=== PATIENT | female | born 1965 | race Caucasian/White ===

== ENCOUNTER 2019-05-21 11:50 | Emergency (ER) | payer SELFPAY ==
[2019-05-21 12:00] VITALS: BP 187/112; PULSE 86; RESP 16; TEMP 36.6; O2SAT 97; BMI 28.1
--- NOTE | 2019-05-21 12:03 | ED_ITS ---
Entered by Renu Hall, acting as scribe for Rianna Floyd PA HPI - Back Pain/Injury General: Chief Complaint: Back Pain/Injury Stated Complaint: Lower left back and side pain Time Seen by Provider: 05/21/19 12:00 Source: patient Mode of arrival: ambulatory Limitations: no limitations History of Present Illness: HPI Narrative: 54 yo Female presents to ED with complaint of lower back pain. Pt states that she was at the grocery store yesterday and was trying to get back into her car but the other car was parked too close. Pt states that she stepped back and had sudden pain in her right lower back. Pt states that the pain kept her up all night and that the pain has moved more around further into her back and into her right hip. Pt states that she has had sciatic pain in the past but this pain isn't radiating down her leg at all. Pt states that she took some Ibuprofen prior to her arrival at the ER. MD elicited complaint: back pain Pertinent past history: prior back pain Onset (ago): day(s) (yesterday) Timing: constant Pain scale (0-10): 10 Quality: sharp Location: right lower back Radiation: other (right hip) Exacerbating factors: movement and walking Relieving factors: none Context: turning/twisting Associated symptoms: Reports no associated symptoms; Deny abdominal pain, chills, dysuria, fatigue, fever(s), nausea, syncope, urinary urgency or vomiting Treatments prior to arrival: NSAIDS Work related injury: No Review of Systems Const: Denies: fever, chills, body aches or fatigue Eyes: Denies: change in vision, blurry vision, photophobia, eye discomfort or eye discharge ENMT: Denies: throat pain, enlarged tonsils, painful swallowing, swelling of lips/tongue, oral sores/lesions, ear pain, ear discharge, nasal discharge, nasal congestion, post nasal drip or facial/sinus pain Card: Denies: chest pain, palpitations, lightheadedness, syncope or pre- syncope Resp: Denies: shortness of breath, productive cough, non-productive cough or chest congestion GI: Denies: abdominal pain, nausea, vomiting or diarrhea : Denies: flank pain, difficulty urinating, painful urination, urinary frequency, urinary urgency or urinary hesitancy Musc: Reports: back pain; Denies: neck pain, extremity pain, extremity swelling, joint pain, joint swelling, redness, joint warmth or joint stiffness Neuro: Denies: headache, numbness in extremities, weakness in extremities or changes in sensation All/Imm: Denies: facial swelling or seasonal allergies PFSH ED PFSH: Social History Smoking and tobacco status: current every day smoker Physical Exam Const: COMMON NORMALS: average body habitus, oriented x3, no limitations, healthy appearing, alert and well nourished GENERAL APPEARANCE: in distress (tearful due to pain) HENMT: THROAT: posterior oropharynx normal, tonsils normal and uvula midline Neck/C-Spine: COMMON NORMALS: full ROM, no lymphadenopathy, supple, no meningeal signs and no JVD GENERAL: Yes normal visual inspection Chest: COMMONS NORMALS: inspection of chest normal Resp: COMMON NORMALS: normal respiratory effort, no retractions, no use of accessory muscles and clear to auscultation bilaterally AUSCULTATION: clear to auscultation bilaterally Cardio: COMMON NORMALS: no JVD, regular rate, regular rhythm, S1 normal heart sound, S2 normal heart sound, no gallops, no clicks, no murmurs, no rub and peripheral pulses 2+ throughout RATE: regular rate RHYTHM: regular rhythm HEART SOUNDS: S1 normal and S2 normal PERIPHERAL PULSES: pulses 2+ throughout GI: COMMON NORMALS: normal to inspection, nondistended, normoactive bowel sounds, soft to palpation, non-tender, no hepatosplenomegaly and no masses PALPATION: Yes soft and Yes no hepatosplenomegaly : COMMON NORMALS: Yes no CVA tenderness BLADDER/KIDNEY EXAM: Yes no CVA tenderness Back/Pelvis: COMMON NORMALS: no CVA tenderness, thoracic and lumbar spine normal to inspection and no thoracic nor lumbar tenderness LUMBAR SPINE/LOWER BACK: Yes paraspinal muscle tenderness (R lumbar), Yes paraspinal muscle spasm (R lumbar) and Yes straight leg raise positive right PELVIS: Yes buttocks normal SACROILIAC JOINTS: Yes SI joint(s) abnormal (TTP over R SI) Extremity: COMMON NORMALS: normal to inspection, full ROM, normal capillary refill, no joint enlargement, no clubbing, cyanosis or edema, no calf tenderness and no pedal edema Neuro: COMMON NORMALS: oriented x3, moves all extremities, no focal motor deficits, no sensory deficits noted and deep tendon reflexes 2+ bilaterally SENSORIUM/ORIENTATION: Yes alert MENINGEAL SIGNS: Yes no meningeal signs Skin: COMMON NORMALS: no rashes or lesions noted GENERAL SKIN EXAM: no rashes or lesions noted Course Vital Signs: Vital signs: Vital Signs Temperature 97.8 F 05/21/19 12:00 Pulse Rate 86 05/21/19 12:00 Respiratory Rate 18 05/21/19 12:45 Blood Pressure 187/112 05/21/19 12:00 Pulse Oximetry 97 05/21/19 12:45 MDM - Back Pain/Injury MDM Narrative: Medical decision making narrative: pts pain down from a 10/10 to a 5/10; she feels comfortable going home but requests a walker/cane as she has several steps to ambulate up to get into her home; recommend she follow up with PCP in a week for continued pain Discharge Plan Discharge Patient Disposition: Home, Self-Care Clinical Impression: Low back sprain Qualifiers: Encounter type: initial encounter Qualified Code(s): S33.5XXA - Sprain of ligaments of lumbar spine, initial encounter Condition: Stable Prescriptions: New Medrol (Mark) 4 mg tablets,dose pack See Rx Instructions .ROUTE .COMPLEX Qty: 21 RF: 0 cyclobenzaprine 10 mg tablet 10 mg PO TID Qty: 21 RF: 0 hydrocodone-acetaminophen 5-325 mg tablet 1 tab PO Q6H PRN (Reason: pain) Qty: 15 RF: 0 ibuprofen 600 mg tablet 600 mg PO Q8H PRN (Reason: pain) Qty: 20 RF: 0 No Action Tylenol 325 mg Tablet 325 mg PO QID PRN (Reason: Pain) RF: 0 ranitidine HCl 75 mg Tablet 75 mg PO DAILY RF: 0 ibuprofen 200 mg Tablet 200 mg PO Q6H PRN (Reason: Pain) RF: 0 Discharge Orders: Discharge Order (Routine); Ordered 05/21/19 Ordered By: Rianna Floyd Referrals: Juan Carlos Virgen DO [Family Provider] - Discharge Diet: Usual diet Discharge Activity: Use walker/crutches as instructed Patient Instructions: Sciatica (ED), Low Back Strain (ED) Activity Restrictions/Additional Instructions: Please follow up with primary care in a week for continued pain. Coding Level of Care Code ED Integrated Specialist for [facility] Fwd Exam Comprehensive The documentation recorded by the scribe, Heartwell,Renu, accurately reflects the service I personally performed and the decisions made by me, Rianna Floyd PA
[2019-05-21 12:45] VITALS: RESP 18; O2SAT 97
[2019-05-21] MEDS: morphine 4 mg/mL SDV 1 mL IM (12:45)
[2019-05-21] MEDS: ketorolac 60 mg/2 mL INJ IM (12:46)
[2019-05-21] MEDS: orphenadrine 30 mg/mL Inj 2 mL 60 MG IM (12:46)
== END 2019-05-21 15:50 | disposition home or self-care (01) ==
PROVIDERS: Emergency Provider Physician Assistant; Family Provider Family Medicine
DX: S33.5XXA Sprain of ligaments of lumbar spine, initial encounter (principal); F17.200 Nicotine dependence, unspecified, uncomplicated; X58.XXXA Exposure to other specified factors, initial encounter
CPT/HCPCS: 12345; 96372; 99281; 99283; J1885; J2270; J2360

== ENCOUNTER 2019-06-18 12:44 | Emergency (ER) | payer SELFPAY ==
[2019-06-18 12:55] VITALS: BP 169/114; PULSE 102; RESP 16; TEMP 37; O2SAT 96; BMI 29.0
--- NOTE | 2019-06-18 13:05 | W.ED.EXTPRO ---
HPI - Extremity Problem General: Chief complaint: Extremity Injury, Upper Stated complaint: wrist pain Time Seen by Provider: 06/18/19 13:05 Source: patient Mode of arrival: ambulatory Limitations: no limitations History of Present Illness: HPI Narrative: 54-year-old female comes in for injury to the left hand and forearm. Patient reports she was helping move a heavy appliance with the patient and tripped going up stairs. Patient reached back to catch herself and hit her hand and wrist area against the wall. Since that time patient has had increased pain and discomfort to the area with minimal relief. Patient appears well. Patient appears in moderate pain. Review of Systems General: Reports: 10 or more systems reviewed and unremarkable except in HPI and below Musc: Reports: joint pain PFSH ED PFSH: Social History Smoking and tobacco status: current every day smoker Physical Exam Const: COMMON NORMALS: no apparent distress and oriented x3 GENERAL APPEARANCE: cooperative HENMT: COMMON NORMALS: normocephalic, TM's normal bilaterally and external nose normal HEAD & SCALP: normal to inspection and normocephalic NOSE: external nose normal TYMPANIC MEMBRANE: TM's normal bilaterally MOUTH: oral and palatal mucosa normal THROAT: posterior oropharynx normal Eye: GENERAL EYE: normal appearance of both eyes Neck/C-Spine: COMMON NORMALS: full ROM Lymph: LYMPHATIC: no lymphadenopathy noted Chest: COMMONS NORMALS: inspection of chest normal Resp: COMMON NORMALS: normal respiratory effort EFFORT & INSPECTION: Yes able to speak in complete sentences Cardio: COMMON NORMALS: regular rate and regular rhythm RATE: regular rate RHYTHM: regular rhythm GI: COMMON NORMALS: non-tender : COMMON NORMALS: Yes no CVA tenderness BLADDER/KIDNEY EXAM: Yes no CVA tenderness Back/Pelvis: COMMON NORMALS: no CVA tenderness and thoracic and lumbar spine normal to inspection Extremity: NARRATIVE EXTREMITY EXAM: Tenderness to the radial distal area and the left thumb. Some mild ecchymosis and swelling is noted to the left thumb. Neuro: COMMON NORMALS: oriented x3 and moves all extremities Psych: COMMON NORMALS: mental status grossly normal and cooperative Skin: COMMON NORMALS: no rashes or lesions noted GENERAL SKIN EXAM: no rashes or lesions noted Course Vital Signs: Vital signs: Vital Signs Temperature 98.6 F 06/18/19 12:55 Pulse Rate 102 H 06/18/19 12:55 Respiratory Rate 16 06/18/19 12:55 Blood Pressure 169/114 06/18/19 12:55 Pulse Oximetry 96 06/18/19 12:55 MDM - Extremity (Nontraumatic) MDM Narrative: Medical decision making narrative: Patient comes in for evaluation of injury to the left hand wrist area. Exam notes some swelling and tenderness to the radial aspect of the thumb and wrist area. It is guarded with movement. Differential diagnosis includes but not limited to fracture, sprain, strain, contusion. X-rays noted no fracture. Reviewed exam with patient with recommendations for treatment and follow-up. Patient reports understanding agreed to plan. Discharge Plan Discharge Patient Disposition: Home, Self-Care Clinical Impression: Sprain and strain of wrist Condition: Stable Prescriptions: No Action Tylenol 325 mg Tablet 325 mg PO QID PRN (Reason: Pain) RF: 0 ranitidine HCl 75 mg Tablet 75 mg PO DAILY RF: 0 ibuprofen 200 mg Tablet 200 mg PO Q6H PRN (Reason: Pain) RF: 0 Medrol (Mark) 4 mg tablets,dose pack See Rx Instructions .ROUTE .COMPLEX Qty: 21 RF: 0 cyclobenzaprine 10 mg tablet 10 mg PO TID Qty: 21 RF: 0 hydrocodone-acetaminophen 5-325 mg tablet 1 tab PO Q6H PRN (Reason: pain) Qty: 15 RF: 0 ibuprofen 600 mg tablet 600 mg PO Q8H PRN (Reason: pain) Qty: 20 RF: 0 Discharge Orders: Discharge Order (Routine); Ordered 06/18/19 Ordered By: Vinod Acosta Referrals: Juan Carlos Virgen DO [Family Provider] - Discharge Diet: Usual diet Discharge Activity: Increase activity as tolerated Patient Instructions: Wrist Injury (ED) Activity Restrictions/Additional Instructions: Wear splint for the next 7 to 10 days or until pain relief. Use acetaminophen and ibuprofen for pain relief. Use ice or heat for further comfort. Increase activity as tolerated. Follow-up with primary care for further evaluation and treatment as needed. Coding Level of Care Code ED Care Transitions Nurse for Alfredo Fwomer Exam Comprehensive
--- NOTE | 2019-06-18 13:14 | XR_ITS ---
WS: [id number] FOREARM LEFT TECHNIQUE: 2 views of the left forearm CLINICAL INFORMATION: injury COMPARISON: None. FINDINGS: No significant elbow effusion. Normal anterior fat pad. No evidence of supra condylar fracture. No ev idence of radial head dislocation. The radius and ulna appear normal. No visualized forearm fractures . Normal radiocarpal joint. XR/XR forearm LT 2V [id number] IMPRESSION: Normal left forearm.
--- NOTE | 2019-06-18 13:14 | XR_ITS ---
WS: [id number] HAND LEFT TECHNIQUE: 3 views of the left hand CLINICAL INFORMATION: injury COMPARISON: None. FINDINGS: Normal metacarpals. Normal MCP joint. Metacarpal heads are normal in appearance. Normal PIP and DIP j oints. No evidence of acute fracture or dislocation. Radiocarpal joint: Normal. Carpal bones: Normal. XR/XR hand LT min 3V* [id number] IMPRESSION: Normal left hand.
[2019-06-18 14:08] VITALS: BP 170/124; PULSE 95; O2SAT 94
== END 2019-06-18 14:08 | disposition home or self-care (01) ==
LOC: ER 14:05
PROVIDERS: Emergency Provider Nurse Practitioner Family; Family Provider Family Medicine
DX: S63.502A Unspecified sprain of left wrist, initial encounter (principal); S66.912A Strain of unspecified muscle, fascia and tendon at wrist and hand level, left hand, initial encounter; W18.49XA Other slipping, tripping and stumbling without falling, initial encounter; F17.210 Nicotine dependence, cigarettes, uncomplicated
CPT/HCPCS: 12345; 29125; 73090; 73130; 99281; 99283

== ENCOUNTER 2019-10-27 22:56 | Emergency (ER) | payer SELFPAY ==
[2019-10-27 23:25] VITALS: BP 163/90; PULSE 95; RESP 17; TEMP 36.9; O2SAT 96; BMI 29.7
--- NOTE | 2019-10-28 00:02 | ED_ITS ---
HPI - General Adult General: Chief complaint: General Medical Stated complaint: r side pain and swelling Time Seen by Provider: 10/28/19 00:01 Source: patient Mode of arrival: ambulatory Limitations: no limitations History of Present Illness: HPI narrative: 54-year-old female comes in today with right upper quadrant abdominal pain. Patient does continue to have her gallbladder. Patient also has a significant intertrigo rash to the breast and axilla area. Patient denies any fever. Patient states that medication she is used for her pain has not helped. Review of Systems General: Reports: 10 or more systems reviewed and unremarkable except in HPI and below GI: Reports: abdominal pain PFSH ED PFSH: Social History Smoking and tobacco status: current every day smoker Physical Exam Const: COMMON NORMALS: no acute distress and patient oriented x3 GENERAL APPEARANCE: cooperative HENMT: COMMON NORMALS: normocephalic and Normal external nose present HEAD & SCALP: normal to inspection and normocephalic NOSE: Normal external nose present MOUTH: Normal oral and palatal mucosa present THROAT: posterior oropharynx normal Eye: GENERAL EYE: appearance normal, both eyes and all related structures Neck/C-Spine: COMMON NORMALS: full ROM Chest: COMMONS NORMALS: normal inspection of the chest Resp: COMMON NORMALS: normal respiratory effort EFFORT & INSPECTION: Yes able to speak in complete sentences Cardio: COMMON NORMALS: regular rate and regular rhythm RATE: regular rate RHYTHM: regular rhythm GI: AUSCULTATION: Yes normoactive bowel sounds PALPATION: Yes Firmness to palpation present (GI) (mild distention) and Yes Tenderness to palpation present (GI) : COMMON NORMALS: Yes no CVA tenderness BLADDER/KIDNEY EXAM: Yes no CVA tenderness Back/Pelvis: COMMON NORMALS: no CVA tenderness and thoracic and lumbar spine normal to inspection Extremity: COMMON NORMALS: normal to inspection Neuro: COMMON NORMALS: patient oriented x3 and moves all extremities Psych: COMMON NORMALS: mental status grossly normal and cooperative Skin: COMMON NORMALS: no rashes or lesions noted GENERAL SKIN EXAM: no rashes or lesions noted Course Vital Signs: Vital signs: Vital Signs Temperature 98.4 F 10/27/19 23:25 Pulse Rate 74 10/28/19 02:00 Respiratory Rate 16 10/28/19 02:00 Blood Pressure 134/85 10/28/19 02:00 Pulse Oximetry 94 10/28/19 02:00 MDM - General Adult MDM Narrative: Medical decision making narrative: Patient comes in with right flank pain. On exam patient has tenderness palpation of the right abdomen and flank area. Respirations are even lungs are clear to auscultation. Abdomen soft with some mild distention. Vital signs are normal. Differential diagnosis includes but not limited to musculoskeletal pain, renal calculi, cholecystitis. Laboratory values noted a mild elevation in white blood cell count of 10.6. CMP noted some elevation in liver enzymes. Bilirubin was normal though and lipase was normal ultrasound of the gallbladder noted no cholelithiasis or cholecystitis. Scan of the abdomen and pelvis noted no renal calculi or other acute abnormal process. Patient did have some significant intertrigo to her breast and axilla area. Patient's pain otherwise is probably secondary to musculoskeletal problem. Reviewed exam with patient with recommendations for treatment of pain and for yeast infection. Patient reports understanding agreed to plan. Lab Data: Labs: Lab Results 10/28/19 10/28/19 10/28/19 Range/Units 00:25 00:36 00:36 WBC 10.6 H (4.0-10.0) 10^3/ uL RBC 4.61 (4.1-5.3) 10^6/u L Hgb 14.5 (11.5-15.3) g/dL Hct 43.6 (37.0-47.0) % MCV 94.6 (81-99) fL MCH 31.5 (28.0-34.0) pg MCHC 33.3 (30.0-36.0) g/dL RDW 13.6 (12.1-15.1) % Plt Count 223 (130-400) 10^3/c mm MPV 11.2 H (7.4-10.4) fL Neut % (Auto) 63.4 % Lymph % (Auto) 26.5 % Person % (Auto) 6.3 % Eos % (Auto) 3.0 % Baso % (Auto) 0.6 % Neut # (Auto) 6.71 (1.8-7.7) 10^3/u L Lymph # (Auto) 2.8 (0.8-4.8) 10^3/u L Person # (Auto) 0.7 (0.2-0.9) 10^3/u L Eos # (Auto) 0.3 (0.0-0.8) 10^3/u L Baso # (Auto) 0.1 (0.0-0.1) 10^3/u L Nucleated RBC % (a uto) 0 % Nucleated RBCs # 0.0 /100WBC Sodium 141 (136-145) mmol/L Potassium 3.6 (3.5-5.1) mmol/L Chloride 101 (98-107) mmol/L Carbon Dioxide 27 (22-29) mmol/L Anion Gap 16.6 (5-19) BUN 17 (6-20) mg/dL Creatinine 0.7 (0.5-0.9) mg/dL GFR Calculation 87.2 L (90-130) mL/min Glucose 99 (65-115) mg/dL Calculated Osmolal ity 288 (285-295) mOsm/k g Calcium 9.0 (8.5-10.5) mg/dL Total Bilirubin 0.4 (0.15-1.2) mg/dL AST 52 H (0-32) U/L ALT 68 H (0-33) U/L Alkaline Phosphata se 78 (35-105) IU/L Total Protein 8.1 (6.6-8.7) g/dL Albumin 4.6 (3.5-5.2) g/dL Globulin 3.5 (1.3-4.6) g/dL Lipase 18 (13-60) U/L Urine Color Yellow (Yellow) Urine Appearance Clear (CLEAR) Urine pH 6.5 (5-7) Ur Specific Gravit y 1.010 (1.005-1.030) Urine Protein Neg (Negative) Urine Glucose (UA) Norm (Normal) Urine Ketones Negative (Negative) Urine Blood Trace H (Negative) Urine Nitrate Negative (Negative) Urine Bilirubin Neg (NEGATIVE) Urine Urobilinogen Norm (Negative) mg/dL Ur Leukocyte Leni ase Negative (Negative) Urine RBC 0-4 H (0-2) /hpf Urine WBC 0-4 H (0-5) /hpf Ur Squamous Epith Cells 5-10 H (0-5) Amorphous Sediment Not Reportable Urine Bacteria Trace (NONE) Discharge Plan Discharge Patient Disposition: Home Clinical Impression: Abdominal wall pain in right flank, Candidiasis, intertrigo Condition: Stable Prescriptions: New nystatin 100,000 unit/gram powder 1 applic TOPICAL BID Qty: 60 RF: 0 Diflucan 150 mg tablet 150 mg PO Q3D Qty: 2 RF: 0 Continued hydrocodone-acetaminophen 5-325 mg tablet 1 tab PO Q6H PRN (Reason: pain) Qty: 10 RF: 0 No Action Tylenol 325 mg Tablet 325 mg PO QID PRN (Reason: Pain) RF: 0 ranitidine HCl 75 mg Tablet 75 mg PO DAILY RF: 0 ibuprofen 200 mg Tablet 200 mg PO Q6H PRN (Reason: Pain) RF: 0 Medrol (Mark) 4 mg tablets,dose pack See Rx Instructions .ROUTE .COMPLEX Qty: 21 RF: 0 cyclobenzaprine 10 mg tablet 10 mg PO TID Qty: 21 RF: 0 ibuprofen 600 mg tablet 600 mg PO Q8H PRN (Reason: pain) Qty: 20 RF: 0 ketorolac 10 mg tablet 10 mg PO Q6H PRN (Reason: pain (scale score 7-10)) Qty: 10 RF: 0 Discharge Orders: Discharge Order (Routine); Ordered 10/28/19 Ordered By: Vinod Acosta Discharge Diet: Usual diet Discharge Activity: Increase activity as tolerated Patient Instructions: Back Pain (ED) Activity Restrictions/Additional Instructions: Take medications as directed. Healthy diet and activity. Follow-up with primary care. Return to the emergency department for new concerns. Coding Level of Care Code ED Postdoctoral Research Fellow for Alfredo Strickland Exam Comprehensive
--- NOTE | 2019-10-28 00:08 | USR_ITS ---
PROCEDURE INFORMATION: Exam: US Abdomen, Limited; Right Upper Quadrant Exam date and time: 10/28/2019 1:26 AM Age: 54 years old Clinical indication: Abdominal pain; Flank; Right upper quadrant (ruq); Additional info: Ruq pain TECHNIQUE: Imaging protocol: US abdomen. Real time ultrasound with image documentation. Limited exam focused on the right upper quadrant. COMPARISON: CT abdomen pelvis w con* [id number] 12/14/2014 6:39 AM FINDINGS: Liver: There is diffuse increased echogenicity of the liver parenchyma and attenuation of sound in the deep portions of the liver obscuring fine hepatic detail, consistent with fatty infiltration. Gallbladder: The gallbladder is normal. There are no stones. There is no wall thickening or pericholecystic fluid. Common bile duct: The common bile duct is nondilated measuring 3 mm. Pancreas: The pancreas is obscured by overlying bowel gas. Right kidney: The right kidney is unremarkable. US/US gall bladder [id number] IMPRESSION: 1. No sign of cholecystitis. 2. Diffuse fatty infiltration of the liver.
[2019-10-28 00:09] VITALS: BP 163/95; PULSE 91; RESP 18; O2SAT 95
--- NOTE | 2019-10-28 00:16 | CTR_ITS ---
PROCEDURE INFORMATION: Exam: CT Abdomen And Pelvis With Contrast Exam date and time: 10/28/2019 1:02 AM Age: 54 years old Clinical indication: Abdominal pain; Localized; Right upper quadrant (ruq); Additional info: Abd pain, distention TECHNIQUE: Imaging protocol: Computed tomography of the abdomen and pelvis with intravenous contrast. Radiation optimization: All CT scans at this facility use at least one of these dose optimization techniques: automated exposure control; mA and/or kV adjustment per patient size (includes targeted exams where dose is matched to clinical indication); or iterative reconstruction. Contrast material: OMNI 300; Contrast volume: 95 ml; Contrast route: INTRAVENOUS (IV); COMPARISON: CT abdomen pelvis w con* [id number] 12/14/2014 6:39 AM RADIATION DOSE METRICS: Total DLP (mGy-cm): 922.69 FINDINGS: Lungs: Lung bases are clear. Liver: There is diffuse low-attenuation of the liver relative to the spleen consistent with fatty infiltration. There is no focal liver abnormality. Gallbladder and bile ducts: The gallbladder is normal. There is no biliary dilation. Pancreas: The pancreas is unremarkable. Spleen: The spleen is unremarkable. Adrenals: The adrenal glands are unremarkable. Kidneys and ureters: The kidneys are unremarkable. No hydronephrosis or stones. No ureteral dilation. Stomach and bowel: There is intermittent small-bowel distention in the left upper quadrant. Obstruction is not suspected. The mid to distal small bowel is unremarkable. There is moderate distal descending and sigmoid colonic diverticulosis without evidence of diverticulitis. The stomach is unremarkable. Appendix: The appendix is normal. Intraperitoneal space: There is no free air or significant intraperitoneal free fluid. Vasculature: The aorta is unremarkable. There is no aneurysm. Lymph nodes: There is no lymphadenopathy in the retroperitoneum, mesentery, pelvis or inguinal regions. Bladder: The urinary bladder is unremarkable. Reproductive: The uterus is unremarkable. There is no adnexal mass or large cyst. Bones/joints: There is mild degenerative disease in the lumbar spine. Soft tissues: The abdominal wall is intact. CT/CT abdomen pelvis w con* [id number] IMPRESSION: 1. No acute findings. 2. Incidental findings above. Radiation Dose CTDIVOL = (mGy): DLP = 922.69 (mGy-cm)
[2019-10-28 00:36] LABS: Add Urine Microscopic? YES; Bilirubin Urine Neg (NEGATIVE); Blood Urine Trace (Negative); Glucose Urine UA Norm (Normal); Ketones Urine Negative (Negative); Leukocyte Esterase Urine Negative (Negative); Nitrate Urine Negative (Negative); Protein Urine Neg (Negative); Urine Appearance Clear (CLEAR); Urine Color Yellow (Yellow); Urobilinogen Urine Norm (Negative); pH Urine 6.5 (5-7)
[2019-10-28 00:38] LABS: Add Urine Culture? No; Bacteria Urine TRACE; RBC Urine 0-4 /hpf (0-2); WBC Urine 0-4 /hpf (0-5)
[2019-10-28 00:43] VITALS: RESP 18; O2SAT 95
[2019-10-28 00:43] LABS: Basophils # 0.1 10^3/uL (0.0-0.1); Basophils % 0.6 %; Eosinophils # 0.3 10^3/uL (0.0-0.8); Hematocrit 43.6 % (37.0-47.0); Hemoglobin 14.5 g/dL (11.5-15.3); Lymphocytes # 2.8 10^3/uL (0.8-4.8); Lymphocytes % 26.5 %; Mean Corpuscular HGB Conc 33.3 g/dL (30.0-36.0); Mean Corpuscular Hemoglobin 31.5 pg (28.0-34.0); Mean Corpuscular Volume 94.6 fL (81-99); Mean Platelet Volume 11.2 fL (7.4-10.4); Monocytes # 0.7 10^3/uL (0.2-0.9); Monocytes % 6.3 %; Neutrophils # 6.71 10^3/uL (1.8-7.7); Neutrophils % 63.4 %; Nucleated Red Blood Cells % 0 %; Platelet Count 223 10^3/cmm (130-400); Red Blood Count 4.61 10^6/uL (4.1-5.3); Red Cell Distribution Width 13.6 % (12.1-15.1); White Blood Count 10.6 10^3/uL (4.0-10.0)
[2019-10-28] MEDS: ondansetron 2 mg/ML SDV 2 mL 4 MG IVP (00:43)
[2019-10-28] MEDS: morphine 4 mg/mL SDV 1 mL IVP (00:43)
[2019-10-28] MEDS: sodium chloride 0.9% 500 ML 999 ML IV (00:43)
[2019-10-28 01:00] VITALS: BP 140/91; RESP 18; O2SAT 94
[2019-10-28 01:04] LABS: Alanine Aminotransferase 68 U/L (0-33); Albumin Level 4.6 g/dL (3.5-5.2); Alkaline Phosphatase 78 IU/L (35-105); Anion Gap 16.6 (5-19); Aspartate Amino Transferase 52 U/L (0-32); Blood Urea Nitrogen 17 mg/dL (6-20); Carbon Dioxide 27 mmol/L (22-29); Chloride 101 mmol/L (98-107); Creatinine Clr Calc Pharmacy 103.6065; Globulin 3.5 g/dL (1.3-4.6); Glomerular Filtration Rate 87.2 mL/min (90-130); Glucose 99 mg/dL (65-115); Lipase 18 U/L (13-60); Osmolality Calculated 288 mOsm/kg (285-295); Potassium 3.6 mmol/L (3.5-5.1); Sodium 141 mmol/L (136-145); Total Bilirubin 0.4 mg/dL (0.15-1.2); Total Protein 8.1 g/dL (6.6-8.7)
[2019-10-28] MEDS: iohexol 300 mg/mL 100 mL Btl IV (01:37)
[2019-10-28 02:00] VITALS: BP 134/85; PULSE 74; RESP 16; O2SAT 94
[2019-10-28] MEDS: HYDROcodone-acetaminophen 5-325 mg Tablet 1 TAB PO (03:08)
[2019-10-28] MEDS: fluconazole 100 mg Tablet 150 MG PO (03:08)
[2019-10-28 03:10] VITALS: BP 134/68; PULSE 78; RESP 16; O2SAT 96
== END 2019-10-28 03:23 | disposition home or self-care (01) ==
PROVIDERS: Emergency Provider Nurse Practitioner Family
DX: R10.9 Unspecified abdominal pain (principal); B37.9 Candidiasis, unspecified; L30.4 Erythema intertrigo; F17.210 Nicotine dependence, cigarettes, uncomplicated
CPT/HCPCS: 12345; 74177; 76705; 80053; 81001; 83690; 85025; 96374; 96375; 99283; J2270; J2405; J7040; Q9967

== ENCOUNTER 2020-04-06 10:38 | Emergency (ER) | payer SELFPAY ==
[2020-04-06 10:43] VITALS: BP 187/93; PULSE 112; RESP 18; TEMP 36.2; O2SAT 97; BMI 29.0
[2020-04-06 10:46] VITALS: BP 187/93; PULSE 106; RESP 18; O2SAT 98
--- NOTE | 2020-04-06 11:05 | W.ED.EPISTAX ---
HPI - Epistaxis General: Chief complaint: Epistaxis Stated complaint: Bloody nose Time Seen by Provider: 04/06/20 11:04 Source: patient Mode of arrival: ambulatory Limitations: no limitations History of Present Illness: HPI Narrative: Patient comes in with left nostril nosebleed. Patient also reports cough and congestion in the chest. Patient reports being ill for about 1 week. Patient appears mildly unwell. Patient appears no acute distress. Patient does routinely smoke. Review of Systems General: Reports: 10 or more systems reviewed and unremarkable except in HPI and below ENMT: Reports: epistaxis Resp: Reports: non-productive cough and chest congestion PFS ED PFSH: Social History Smoking and tobacco status: current every day smoker Physical Exam Const: COMMON NORMALS: no acute distress and patient oriented x3 GENERAL APPEARANCE: cooperative HENMT: COMMON NORMALS: normocephalic, TM's normal bilaterally and Normal external nose present HEAD & SCALP: normal to inspection and normocephalic NOSE: Normal external nose present and Other nasal findings present (Blood noted in the left naris.) TYMPANIC MEMBRANE: TM's normal bilaterally MOUTH: Normal oral and palatal mucosa present THROAT: posterior oropharynx normal and other (Trace of blood in the posterior pharynx) Eye: GENERAL EYE: appearance normal, both eyes and all related structures Neck/C-Spine: COMMON NORMALS: full ROM Lymph: LYMPHATIC: no lymphadenopathy noted Chest: COMMONS NORMALS: normal inspection of the chest Resp: COMMON NORMALS: normal respiratory effort EFFORT & INSPECTION: Yes able to speak in complete sentences AUSCULTATION: diminished lung sounds Cardio: COMMON NORMALS: regular rate and regular rhythm RATE: regular rate RHYTHM: regular rhythm GI: COMMON NORMALS: non-tender Back/Pelvis: COMMON NORMALS: thoracic and lumbar spine normal to inspection Extremity: COMMON NORMALS: normal to inspection Neuro: COMMON NORMALS: patient oriented x3 and moves all extremities Psych: COMMON NORMALS: mental status grossly normal and cooperative Skin: COMMON NORMALS: no rashes or lesions noted GENERAL SKIN EXAM: no rashes or lesions noted Course Vital Signs: Vital signs: Vital Signs Temperature 97.1 F L 04/06/20 10:43 Pulse Rate 101 H 04/06/20 11:37 Respiratory Rate 20 H 04/06/20 11:32 Blood Pressure 187/93 04/06/20 10:46 Pulse Oximetry 99 04/06/20 11:32 MDM - Epistaxis MDM Narrative: Medical decision making narrative: Patient comes in today for cough and congestion and nosebleed. On exam patient has no bleeding at this time. Patient does have some blood in the left naris and mild streaking in the posterior pharynx. Respirations are even lungs are clear to auscultation vital signs are normal except for some mild elevation of blood pressure. Patient reports illness for 1 week. Differential diagnosis includes epistaxis, bronchitis, pneumonia. Chest x-ray was normal. Bleeding was brought under control with Afrin. Patient instructions were given for antibiotic and the use of albuterol inhaler and Afrin nasal spray. Patient reports understanding of care plan and need for follow-up or return to the emergency room. Discharge Plan Discharge Patient Disposition: Home Clinical Impression: Epistaxis Acute bronchitis Qualifiers: Bronchitis organism: unspecified organism Qualified Code(s): J20.9 - Acute bronchitis, unspecified Condition: Stable Prescriptions: New cephalexin 500 mg capsule 500 mg PO TID 7 Days Qty: 21 RF: 0 ketoconazole 1 % shampoo 1 applic topical Q3D Qty: 200 RF: 0 No Action Tylenol 325 mg Tablet 325 mg PO QID PRN (Reason: Pain) RF: 0 ranitidine HCl 75 mg Tablet 75 mg PO DAILY RF: 0 ibuprofen 200 mg Tablet 200 mg PO Q6H PRN (Reason: Pain) RF: 0 Medrol (Mark) 4 mg tablets,dose pack See Rx Instructions .ROUTE .COMPLEX Qty: 21 RF: 0 cyclobenzaprine 10 mg tablet 10 mg PO TID Qty: 21 RF: 0 ibuprofen 600 mg tablet 600 mg PO Q8H PRN (Reason: pain) Qty: 20 RF: 0 nystatin 100,000 unit/gram powder 1 applic TOPICAL BID Qty: 60 RF: 0 Diflucan 150 mg tablet 150 mg PO Q3D Qty: 2 RF: 0 hydrocodone-acetaminophen 5-325 mg tablet 1 tab PO Q6H PRN (Reason: pain) Qty: 10 RF: 0 ketorolac 10 mg tablet 10 mg PO Q6H PRN (Reason: pain (scale score 7-10)) Qty: 10 RF: 0 Discharge Orders: Discharge ED (Routine); Ordered 04/06/20 Ordered By: Vinod Acosta Discharge Diet: Usual diet Discharge Activity: Increase activity as tolerated Patient Instructions: Epistaxis (ED) Activity Restrictions/Additional Instructions: Drink plenty of fluids of antibiotic. Use Afrin nasal spray 2 spray each nostril 3 times a day for the next 3 days. Use albuterol inhaler 2 puffs every 4 times a day for the next 5 days. You can use the inhaler every 4 hours as needed for shortness of breath. Take antibiotics 3 times a day as directed. Follow-up with primary care as needed. Return to the emergency department for new concerns. Stand Alone Forms: Work/School Release Coding Level of Care Code ED [employer] Secretary for Alfredo Fwd Exam Comprehensive
--- NOTE | 2020-04-06 11:10 | XRR_ITS ---
PROCEDURE INFORMATION: Exam: XR Chest, 1 View Exam date and time: 04/06/2020 11:20 AM Age: 54 years old Clinical indication: Cough; Additional info: Cough, congestion TECHNIQUE: Imaging protocol: XR of the chest Views: 1 view. COMPARISON: CR Chest 2 views* [id number] 02/03/2015 10:17 AM FINDINGS: Lungs: Unremarkable. No consolidation. Pleural spaces: Unremarkable. No pleural effusion. No pneumothorax. Heart/Mediastinum: Unremarkable. No cardiomegaly. Bones/joints: Unremarkable. XR/XR chest 1V portable [id number] IMPRESSION: No acute findings.
[2020-04-06] MEDS: oxymetazoline 0.05% Nasal Spray 15 mL 2 SPRAY NOSTRIL-B (11:16)
[2020-04-06] MEDS: albuterol 8 gm MDI 2 PUFF INHALATION (11:29)
[2020-04-06 11:32] VITALS: PULSE 97; RESP 20; O2SAT 99
[2020-04-06 11:37] VITALS: PULSE 101
[2020-04-06] MEDS: dexamethasone 4 mg Tablet 10 MG PO (11:44)
[2020-04-06] MEDS: cephALEXin 500 mg Capsule PO (11:44)
[2020-04-06 11:48] VITALS: BP 134/74; PULSE 87; RESP 18; O2SAT 98
== END 2020-04-06 11:49 | disposition home or self-care (01) ==
PROVIDERS: Emergency Provider Nurse Practitioner Family
DX: R04.0 Epistaxis (principal); J20.9 Acute bronchitis, unspecified; F17.210 Nicotine dependence, cigarettes, uncomplicated
CPT/HCPCS: 12345; 71045; 94640; 99282; 99283; J3535; J8540

== ENCOUNTER 2020-08-24 15:16 | Emergency (ER) | payer SELFPAY ==
[2020-08-24 16:04] VITALS: BP 196/97; PULSE 94; RESP 16; TEMP 37; O2SAT 97; BMI 29.8
--- NOTE | 2020-08-24 16:27 | W.ED.SKABFB ---
HPI - Skin/Abscess/Foreign Bdy General: Chief complaint: Skin/Abscess/Foreign Body Stated complaint: RASH CAUSING BLISTERS AND CRACKING Time Seen by Provider: 08/24/20 15:48 History of Present Illness: HPI narrative: Patient has a rash that started on her lower extremities starting as small red dots that have slowly spread out and have started severe itching. They have become very large and now spreading to her arms. Patient said she has tried dake-hyz-ftgxgag products such as O'Addie's working hand solution, alcohol rubs, iodine soaks and rubs. Actually the wound become worse with the iodine. Patient also complained about the skin on her hands and feet starting to crack and becoming painful. This seem to start about the same time as a rash. Says she has her hands and feet in hot water a lot as she tries to keep them clean. Patient also has multiple cats in her house and outside that she has contact with. Patient complains about severe itching. MD complaint: rash Onset (ago): week(s) Tetanus up to date: yes Location: LUE, RUE, L hand, R hand, LLE, RLE, L foot and R foot Severity: severe Quality: burning and pruritic Relieving factors: none Context: other (Has tried multiple ibfl-twn-swanjkf products that have worsened the rash) Associated symptoms: Deny chills, fever(s), nausea or vomiting Review of Systems Const: Denies: fever(s), chills or body aches Eyes: Denies: change in vision or blurry vision ENMT: Denies: throat pain or nasal congestion Card: Denies: chest pain or dyspnea on exertion Resp: Denies: dyspnea, productive cough or non-productive cough GI: Denies: abdominal pain, nausea or vomiting Musc: Denies: extremity pain Skin/Breast: Reports: pruritus, erythema, skin tenderness, sores, new lesions, non-healing lesions and dry skin; Denies: rash Neuro: Denies: headache(s) Psych: Denies: anxiety or depression Maury/Lymph: Denies: easy bruising PFSH ED PFSH: Social History Smoking and tobacco status: current every day smoker Physical Exam Const: COMMON NORMALS: no acute distress, average body habitus and patient oriented x3 HENMT: COMMON NORMALS: normocephalic HEAD & SCALP: normal to inspection and normocephalic FACE & SINUS: normal facial exam Eye: COMMON NORMALS: conjunctivae normal GENERAL EYE: appearance normal, both eyes and all related structures CONJUNCTIVA: Yes conjunctivae normal Neck/C-Spine: COMMON NORMALS: no JVD Chest: COMMONS NORMALS: normal inspection of the chest Resp: COMMON NORMALS: normal respiratory effort and clear to auscultation bilaterally AUSCULTATION: clear to auscultation bilaterally Cardio: COMMON NORMALS: no JVD, regular rate and regular rhythm RATE: regular rate RHYTHM: regular rhythm GI: COMMON NORMALS: Normal to inspection, nondistended, normoactive bowel sounds present Extremity: COMMON NORMALS: normal to inspection and full ROM Neuro: COMMON NORMALS: patient oriented x3 Skin: OTHER: Patient appears to have 2 different problems she does have dry skin to her hands that are starting to crack and appear irritated and this also same on her feet. She also has sores that are starting on her forearms and she has some large sores on both lower extremities that go up to the knee. These seem to be sharply delineated erythematous zones with scaling and and scalloped accentuated along extending out to margins, possibly small areas of pustules noted. Course Vital Signs: Vital signs: Vital Signs Temperature 98.6 F 08/24/20 16:04 Pulse Rate 94 08/24/20 16:04 Respiratory Rate 16 08/24/20 16:04 Blood Pressure 196/97 08/24/20 16:04 Pulse Oximetry 97 08/24/20 16:04 MDM - Skin/Abscess/Foreign Bdy MDM Narrative: Medical decision making narrative: Patient strongly encouraged to avoid cast at all possible. I think there are 2 different problems with eczema going on the hands and the feet then also the tenia corporis that seems to be affecting her lower extremities and her upper extremities. We will try to get patient into dermatology soon as possible see if we get a skin scraping done. Patient is make sure she follows up with her primary care or/ and physical therapy assistant instructor strongly urged patient not to use any xbvh-whf-fzxvqbs home remedies until she discusses with the physical therapy assistant instructor. Discharge Plan Discharge Patient Disposition: Home Clinical Impression: Tinea corporis Eczema Qualifiers: Eczema type: other Qualified Code(s): L30.8 - Other specified dermatitis Condition: Stable Prescriptions: New miconazole nitrate 2 % cream 1 applic topical BID Qty: 30 RF: 0 gentian janette 2 % solution 1 applic topical BID 3 Days Qty: 59 RF: 0 clobetasol 0.05 % lotion 1 applic topical DAILY 28 Days Qty: 118 RF: 0 Cetaphil DailyAdvance Lotion 1 ea topical DAILY 28 Days Qty: 473 RF: 0 hydroxyzine HCl 25 mg tablet 25 mg PO TID PRN (Reason: itching) Qty: 20 RF: 0 No Action Tylenol 325 mg Tablet 325 mg PO QID PRN (Reason: Pain) RF: 0 ranitidine HCl 75 mg Tablet 75 mg PO DAILY RF: 0 ibuprofen 200 mg Tablet 200 mg PO Q6H PRN (Reason: Pain) RF: 0 Medrol (Mark) 4 mg tablets,dose pack See Rx Instructions .ROUTE .COMPLEX Qty: 21 RF: 0 cyclobenzaprine 10 mg tablet 10 mg PO TID Qty: 21 RF: 0 ibuprofen 600 mg tablet 600 mg PO Q8H PRN (Reason: pain) Qty: 20 RF: 0 nystatin 100,000 unit/gram powder 1 applic TOPICAL BID Qty: 60 RF: 0 Diflucan 150 mg tablet 150 mg PO Q3D Qty: 2 RF: 0 hydrocodone-acetaminophen 5-325 mg tablet 1 tab PO Q6H PRN (Reason: pain) Qty: 10 RF: 0 ketoconazole 1 % shampoo 1 applic topical Q3D Qty: 200 RF: 0 ketorolac 10 mg tablet 10 mg PO Q6H PRN (Reason: pain (scale score 7-10)) Qty: 10 RF: 0 Discharge Orders: Discharge ED (Routine); Ordered 08/24/20 Ordered By: Cameron Oleary Discharge Diet: Usual diet Discharge Activity: Increase activity as tolerated Patient Instructions: Eczema (ED), Tinea Corporis (ED) Activity Restrictions/Additional Instructions: Follow-up with medical provider as directed. Take medications as prescribed. Return to the ER or your medical provider if condition worsens. Please read and understand discharge instructions. If any questions ask please. Hospital will contact you with appointment with the physical therapy assistant instructor. Try to stay away from cats at all possible if not make sure your cats are bathed and treated for ringworm possible fungal infections. Hands and feet should be covered would like Saran wrap at night to help keep moisturizer in. Use of gentian janette and the antifungal cream on the reddened areas that appear to be fungal infection. Try to keep hands out of water as much as possible along with the feet also. Do not use any more iodine alcohol or other home remedies to try to treat this. Make sure the apply the Gentian janette first and then after that the antifungal cream. Know that the gentian janette solution can and will stain anything it comes in contact with. Coding Level of Care Code ED Wheel Borer for Alfredo Fwd Exam Comprehensive
[2020-08-24 16:37] VITALS: RESP 18
[2020-08-24 16:47] VITALS: BP 148/95; PULSE 80; RESP 18; O2SAT 98
--- NOTE | 2020-08-25 15:33 | PC.SOCIAL ---
Called Dr Colunga office and was able to get patient an appt for today at 4pm.Tried reaching patient unable to reach left message. Called life partner Roz not able to reach. Called again just now and was not able to reach patient but did reach Roz. This nurse explained to her that they can see patient at 4pm today but per Roz patient works until 5. Explained that this nurse will cancel appt and we will need to reschedule once we know a time she can go. Roz states she doesn't have insurance so This nurse explained as long as she can pay a little at time of visit even $20 they can see her and give her financial assistance application to see if qualifies. This nurse explained that it seems the rash is significant. Roz then states somebody needs to do something. she goes to the ED and everytime they claim it is something different . This nurse explained the need to follow up with the specialist. She continues to get angry and says they need to f'n figure out something and hangs up phone. Hopeful patient will return call so we can try and get her an appt with Dr Colunga. Will not contact Roz again. Notified Dr Colunga office had to leave a message that patient is not able to make 4pm appt because she does not get off until 5.
--- NOTE | 2020-08-26 10:05 | PC.SOCIAL ---
Addendum entered by Lucia London 09/10/20 15:25: Patient had a follow up appointment scheduled for 08.27.[address] Colunga at dermatology - patient did attend appointment. Original Note: Patient returned call regarding the dermatology appt. She asked if it could be scheduled on Tuesday since she is off Fridays. Called Clinic and Dr Colunga doesn't work Fridays. This nurse talked to Indira at clinic.Explained that this nurse will have patient call clinic directly and talk to Indira since she is aware patient needs seen as soon as possible. Updated patient and provided number for her to call so a time can be scheduled that works best for her. She took down information and will call to schedule. She will speak to Indira.
== END 2020-08-24 17:05 | disposition home or self-care (01) ==
PROVIDERS: Emergency Provider Nurse Practitioner Family
DX: B35.4 Tinea corporis (principal); L30.8 Other specified dermatitis; F17.210 Nicotine dependence, cigarettes, uncomplicated
CPT/HCPCS: 99281

== ENCOUNTER → 2021-07-24 16:16 | Outpatient (BNVA) | payer SELFPAY | PROVIDERS: Visit Provider Registered Nurse Neonatal Intensive Care | DX: S69.92XA Unspecified injury of left wrist, hand and finger(s), initial encounter (principal); X58.XXXA Exposure to other specified factors, initial encounter | CPT/HCPCS: 73130 ==

== ENCOUNTER 2022-02-11 14:18 | Emergency (ER) | payer SELFPAY ==
[2022-02-11 14:26] VITALS: BP 153/98; PULSE 116; RESP 18; TEMP 36.1; O2SAT 98
--- NOTE | 2022-02-11 15:37 | ED_ITS ---
Documented by User: Selvin Tapia MD 02/11/22 17:59 HPI - GI Bleed General: Chief complaint: GI Bleed Stated complaint: Passing blood, Abd pain on R side Time Seen by Provider: 02/11/22 15:26 Source: patient and family Mode of arrival: ambulatory Limitations: no limitations History of Present Illness: See nursing assessment. Patient with complaints of bloody stools since yesterday morning. Patient states today she passed a large amount of bright red blood and clots and diarrhea this morning. This was confirmed by her family member. Patient has had intermittent abdominal cramping. She complains of right upper quadrant and right lower quadrant abdominal pain. She denies any previous abdominal surgery. She does have a history of GERD. Also has a history of psoriasis. She states the psoriasis is under control now. She states she does take ibuprofen 600 mg 3 times a day for joint pain. She denies any blood thinners. She is no longer on Otezla. She does smoke cigarettes. She states she drinks alcohol socially but family member states she drinks almost every day. She denies any previous history of GI bleed. Associated symptoms: Reports abdominal pain; Denies chills, fever(s), headache(s), nausea, rash or vomiting Review of Systems Const: Denies: fever(s) or chills Eyes: Denies: change in vision ENMT: Denies: throat pain Card: Denies: chest pain or palpitations Resp: Denies: dyspnea or wheezing GI: Reports: abdominal pain and hematochezia (Bright red blood per rectum including clots); Denies: nausea, vomiting, hematemesis or melena : Denies: flank pain Musc: Denies: neck pain or back pain Skin/Breast: Denies: rash or pruritus Neuro: Denies: headache(s) or numbness in extremities Psych: Denies: anxiety Maury/Lymph: Denies: enlarged lymph nodes [facility] ED PFSH: Medical History Psoriasis Social History History of recent travel: No Supplemental PFSH Information: GERD, plaque psoriasis Physical Exam Const: COMMON NORMALS: no acute distress, patient oriented x3, no limitations and well nourished EXAM LIMITATIONS: altered mental status GENERAL APPEARANCE: cooperative HENMT: COMMON NORMALS: normocephalic and atraumatic HEAD & SCALP: normocephalic and atraumatic FACE & SINUS: normal facial exam Eye: COMMON NORMALS: EOMs intact bilaterally Neck/C-Spine: COMMON NORMALS: full ROM, no lymphadenopathy, supple and no meningeal signs GENERAL: Yes normal visual inspection Lymph: LYMPHATIC: no lymphadenopathy noted Chest: COMMONS NORMALS: normal inspection of the chest and normal palpation of entire chest wall CHEST: No Ecchymosis present and No rash Resp: COMMON NORMALS: normal respiratory effort, No retractions and clear to auscultation bilaterally EFFORT & INSPECTION: No respiratory distress AUSCULTATION: clear to auscultation bilaterally Cardio: COMMON NORMALS: regular rhythm and Peripheral pulses 2+ throughout JUGULAR VENOUS DISTENTION: no JVD RHYTHM: regular rhythm PERIPHERAL PULSES: Peripheral pulses 2+ throughout OTHER: Mild tachycardia GI: COMMON NORMALS: Soft to palpation, No hepatosplenomegaly present, no masses and no bruits PALPATION: Yes Soft to palpation and Yes No hepatosplenomegaly present OTHER: Mild right upper quadrant and right lower quadrant abdominal pain. Normoactive bowel sounds throughout. : COMMON NORMALS: Yes no CVA tenderness BLADDER/KIDNEY EXAM: Yes no CVA tenderness OTHER: Rectal exam attended by nursing informatics clinical analyst. Anus appears normal. No masses within the rectum. Stool intermixed with red blood. Hemoccult is positive. Back/Pelvis: COMMON NORMALS: no CVA tenderness Extremity: COMMON NORMALS: normal to inspection, full ROM and capillary refill normal Neuro: COMMON NORMALS: patient oriented x3, CN's II-XII intact bilaterally, no focal motor deficits and no sensory deficits noted MENINGEAL SIGNS: Yes no meningeal signs Psych: COMMON NORMALS: mental status grossly normal and Normal thought process present THOUGHT PROCESS: Normal thought process present Skin: COMMON NORMALS: no rashes or lesions noted and no wounds GENERAL SKIN EXAM: no rashes or lesions noted Course Vital Signs: Vital signs: Vital Signs Temperature 97.0 F L 02/11/22 14:26 Pulse Rate 93 02/11/22 17:52 Respiratory Rate 14 02/11/22 17:52 Blood Pressure 140/83 02/11/22 17:52 Pulse Oximetry 97 02/11/22 17:52 Oxygen Delivery Me thod 02/11/22 17:52 MDM - GI Bleed Medical Decision Making Lower gastrointestinal bleeding. Possible colitis. Possible diverticulitis. I did not perform rectal exam due to the history as above. 1800: care transitioned to Dr. Brown at shift change. Lab Data 02/11/22 15:48 02/11/22 15:48 Radiology Impressions Abdomen/Pelvis CT 02/11/22 16:40 IMPRESSION: 1. Diverticulosis of the distal colon without evidence for diverticulitis. 2. Mild wall thickening in the sigmoid colon may relate to muscular hypertrophy. Colitis is not excluded. COMMENTS: Consistent with the [employer]'s Incidental Findings Committee white paper (J Am Mukesh Radiol 2018): Any incidental renal lesion less than 1 cm or classified as too small to characterize, or any incidental cystic renal lesion characterized as simple-appearing, is likely benign. No follow-up imaging is recommended for these lesions per consensus recommendations based on imaging criteria. Laboratory Results WBC 6.8 10^3/uL (4.0-10.0) 02/11/22 15:48 RBC 3.97 10^6/uL (4.1-5.3) L 02/11/22 15:48 Hgb 10.6 g/dL (11.5-15.3) L 02/11/22 18:21 Hct 31.8 % (37.0-47.0) L 02/11/22 18:21 MCV 91.9 fl (81-99) 02/11/22 15:48 MCH 31.5 pg (28.0-34.0) 02/11/22 15:48 MCHC 34.2 g/dL (30.0-36.0) 02/11/22 15:48 RDW 12.9 % (12.1-15.1) 02/11/22 15:48 Plt Count 222 10^3/cmm (130-400) 02/11/22 15:48 MPV 10.6 fL (7.4-10.4) H 02/11/22 15:48 Neut % (Auto) 61.3 % 02/11/22 15:48 Lymph % (Auto) 30.2 % 02/11/22 15:48 [place] % (Auto) 6.0 % 02/11/22 15:48 Eos % (Auto) 1.8 % 02/11/22 15:48 Baso % (Auto) 0.6 % 02/11/22 15:48 Neut # (Auto) 4.16 10^3/uL (1.8-7.7) 02/11/22 15:48 Lymph # (Auto) 2.1 10^3/uL (0.8-4.8) 02/11/22 15:48 [place] # (Auto) 0.4 10^3/uL (0.2-0.9) 02/11/22 15:48 Eos # (Auto) 0.1 10^3/uL (0.0-0.8) 02/11/22 15:48 Baso # (Auto) 0.0 10^3/uL (0.0-0.1) 02/11/22 15:48 Nucleated RBC % (auto) 0 % 02/11/22 15:48 Nucleated RBCs # 0.0 /100WBC 02/11/22 15:48 PT 13.60 SECONDS (12.1-14.9) 02/11/22 15:48 INR 1.01 (0.8-1.2) 02/11/22 15:48 APTT 29.2 SECONDS (23.9-36.7) 02/11/22 15:48 Sodium 135 mmol/L (136-145) L 02/11/22 15:48 Potassium 3.8 mmol/L (3.5-5.1) 02/11/22 15:48 Chloride 98 mmol/L (98-107) 02/11/22 15:48 Carbon Dioxide 25 mmol/L (22-29) 02/11/22 15:48 Anion Gap 15.8 (5-19) 02/11/22 15:48 BUN 17 mg/dL (6-20) 02/11/22 15:48 Creatinine 0.5 mg/dL (0.5-0.9) 02/11/22 15:48 GFR Calculation 127.6 mL/min (90-130) 02/11/22 15:48 Glucose 104 mg/dL (65-115) 02/11/22 15:48 Calculated Osmolality 282 mOsm/kg (285-295) L 02/11/22 15:48 Calcium 9.6 mg/dL (8.5-10.5) 02/11/22 15:48 Total Bilirubin 0.8 mg/dL (0.15-1.2) 02/11/22 15:48 AST 27 U/L (0-32) 02/11/22 15:48 ALT 28 U/L (0-33) 02/11/22 15:48 Alkaline Phosphatase 64 U/L (35-105) 02/11/22 15:48 Total Protein 7.0 g/dL (6.6-8.7) 02/11/22 15:48 Albumin 4.2 g/dL (3.5-5.2) 02/11/22 15:48 Globulin 2.8 g/dL (1.3-4.6) 02/11/22 15:48 Lipase 15 U/L (13-60) 02/11/22 15:48 Blood Type O Negative 02/11/22 15:48 Rho(D) Type Negative 02/11/22 15:48 Antibody Screen Negative 02/11/22 15:48 Discharge Plan Discharge Patient Disposition: Home Clinical Impression: Lower gastrointestinal hemorrhage, Diverticulosis Condition: Stable Prescriptions: New hydrocodone-acetaminophen 5-325 mg tablet 1 tab PO Q6H PRN (Reason: pain) Qty: 14 0RF No Action Cetaphil Moisturizing Lotion 1 applic topical DAILY acetaminophen [Tylenol] 325 mg Tablet 650 mg PO QID PRN (Reason: Pain) ibuprofen 600 mg tablet 600 mg PO TID PRN (Reason: pain) ranitidine HCl 75 mg Tablet 75 mg PO DAILY PRN (Reason: Acid Reflux) Discharge Orders: Discharge ED (Routine); Ordered 02/11/22 Ordered By: Addsion Brown Referrals: Jarvis Puckett DO [Physician] - 1-3 days Discharge Diet: Advance as tolerated Discharge Activity: Resume usual activity Patient Instructions: Gastrointestinal Bleeding (ED), Diverticulosis (ED) Coding Level of Care Code ED Machinist First Class for Chg Fwd Exam Comprehensive Documented by User: Addison Brown MD 02/11/22 19:10 HPI - GI Bleed General: Chief complaint: GI Bleed Stated complaint: Passing blood, Abd pain on R side Time Seen by Provider: 02/11/22 15:26 PFSH ED PFSH: Medical History Psoriasis Social History History of recent travel: No Course Vital Signs: Vital signs: Vital Signs Temperature 97.0 F L 02/11/22 14:26 Pulse Rate 93 02/11/22 17:52 Respiratory Rate 14 02/11/22 17:52 Blood Pressure 140/83 02/11/22 17:52 Pulse Oximetry 97 02/11/22 17:52 Oxygen Delivery Me thod 02/11/22 17:52 MDM - GI Bleed Medical Decision Making Lower gastrointestinal bleeding. Possible colitis. Possible diverticulitis. I did not perform rectal exam due to the history as above. 1800: care transitioned to Dr. Brown at shift change. Patient presents here with lower GI bleed likely from diverticulosis she has no signs of diverticulitis or colitis here. Her white count is normal her hemoglobin did drop 2 points here I spoke to her at length and recommended admission for observation make sure her hemoglobin did not drop further she re fused admission she states she like to go home she felt improvement follow-up with GI outpatient informed her she bleeds any worsening or gets any weakness she is return immediately she understands and agrees to the plan. Lab Data 02/11/22 15:48 02/11/22 15:48 Radiology Impressions Abdomen/Pelvis CT 02/11/22 16:40 IMPRESSION: 1. Diverticulosis of the distal colon without evidence for diverticulitis. 2. Mild wall thickening in the sigmoid colon may relate to muscular hypertrophy. Colitis is not excluded. COMMENTS: Consistent with the [employer]'s Incidental Findings Committee white paper (J Am Mukesh Radiol 2018): Any incidental renal lesion less than 1 cm or classified as too small to characterize, or any incidental cystic renal lesion characterized as simple-appearing, is likely benign. No follow-up imaging is recommended for these lesions per consensus recommendations based on imaging criteria. Laboratory Results WBC 6.8 10^3/uL (4.0-10.0) 02/11/22 15:48 RBC 3.97 10^6/uL (4.1-5.3) L 02/11/22 15:48 Hgb 10.6 g/dL (11.5-15.3) L 02/11/22 18:21 Hct 31.8 % (37.0-47.0) L 02/11/22 18:21 MCV 91.9 fl (81-99) 02/11/22 15:48 MCH 31.5 pg (28.0-34.0) 02/11/22 15:48 MCHC 34.2 g/dL (30.0-36.0) 02/11/22 15:48 RDW 12.9 % (12.1-15.1) 02/11/22 15:48 Plt Count 222 10^3/cmm (130-400) 02/11/22 15:48 MPV 10.6 fL (7.4-10.4) H 02/11/22 15:48 Neut % (Auto) 61.3 % 02/11/22 15:48 Lymph % (Auto) 30.2 % 02/11/22 15:48 [place] % (Auto) 6.0 % 02/11/22 15:48 Eos % (Auto) 1.8 % 02/11/22 15:48 Baso % (Auto) 0.6 % 02/11/22 15:48 Neut # (Auto) 4.16 10^3/uL (1.8-7.7) 02/11/22 15:48 Lymph # (Auto) 2.1 10^3/uL (0.8-4.8) 02/11/22 15:48 [place] # (Auto) 0.4 10^3/uL (0.2-0.9) 02/11/22 15:48 Eos # (Auto) 0.1 10^3/uL (0.0-0.8) 02/11/22 15:48 Baso # (Auto) 0.0 10^3/uL (0.0-0.1) 02/11/22 15:48 Nucleated RBC % (auto) 0 % 02/11/22 15:48 Nucleated RBCs # 0.0 /100WBC 02/11/22 15:48 PT 13.60 SECONDS (12.1-14.9) 02/11/22 15:48 INR 1.01 (0.8-1.2) 02/11/22 15:48 APTT 29.2 SECONDS (23.9-36.7) 02/11/22 15:48 Sodium 135 mmol/L (136-145) L 02/11/22 15:48 Potassium 3.8 mmol/L (3.5-5.1) 02/11/22 15:48 Chloride 98 mmol/L (98-107) 02/11/22 15:48 Carbon Dioxide 25 mmol/L (22-29) 02/11/22 15:48 Anion Gap 15.8 (5-19) 02/11/22 15:48 BUN 17 mg/dL (6-20) 02/11/22 15:48 Creatinine 0.5 mg/dL (0.5-0.9) 02/11/22 15:48 GFR Calculation 127.6 mL/min (90-130) 02/11/22 15:48 Glucose 104 mg/dL (65-115) 02/11/22 15:48 Calculated Osmolality 282 mOsm/kg (285-295) L 02/11/22 15:48 Calcium 9.6 mg/dL (8.5-10.5) 02/11/22 15:48 Total Bilirubin 0.8 mg/dL (0.15-1.2) 02/11/22 15:48 AST 27 U/L (0-32) 02/11/22 15:48 ALT 28 U/L (0-33) 02/11/22 15:48 Alkaline Phosphatase 64 U/L (35-105) 02/11/22 15:48 Total Protein 7.0 g/dL (6.6-8.7) 02/11/22 15:48 Albumin 4.2 g/dL (3.5-5.2) 02/11/22 15:48 Globulin 2.8 g/dL (1.3-4.6) 02/11/22 15:48 Lipase 15 U/L (13-60) 02/11/22 15:48 Blood Type O Negative 02/11/22 15:48 Rho(D) Type Negative 02/11/22 15:48 Antibody Screen Negative 02/11/22 15:48 Discharge Plan Discharge Patient Disposition: Home Clinical Impression: Lower gastrointestinal hemorrhage, Diverticulosis Condition: Stable Prescriptions: New hydrocodone-acetaminophen 5-325 mg tablet 1 tab PO Q6H PRN (Reason: pain) Qty: 14 0RF No Action Cetaphil Moisturizing Lotion 1 applic topical DAILY acetaminophen [Tylenol] 325 mg Tablet 650 mg PO QID PRN (Reason: Pain) ibuprofen 600 mg tablet 600 mg PO TID PRN (Reason: pain) ranitidine HCl 75 mg Tablet 75 mg PO DAILY PRN (Reason: Acid Reflux) Discharge Orders: Discharge ED (Routine); Ordered 02/11/22 Ordered By: Addison Brown Referrals: Jarvis Puckett DO [Physician] - 1-3 days Discharge Diet: Advance as tolerated Discharge Activity: Resume usual activity Patient Instructions: Gastrointestinal Bleeding (ED), Diverticulosis (ED) Coding Level of Care Code ED Machinist First Class for Chg Fwd Exam Comprehensive
[2022-02-11] MEDS: sodium chloride 0.9% 500 ML IV (16:00)
[2022-02-11 16:01] LABS: Basophils % 0.6 %; Eosinophils # 0.1 10^3/uL (0.0-0.8); Eosinophils % 1.8 %; Hematocrit 36.5 % (37.0-47.0); Hemoglobin 12.5 g/dL (11.5-15.3); Lymphocytes # 2.1 10^3/uL (0.8-4.8); Lymphocytes % 30.2 %; Mean Corpuscular HGB Conc 34.2 g/dL (30.0-36.0); Mean Corpuscular Hemoglobin 31.5 pg (28.0-34.0); Mean Corpuscular Volume 91.9 fl (81-99); Mean Platelet Volume 10.6 fL (7.4-10.4); Monocytes # 0.4 10^3/uL (0.2-0.9); Neutrophils # 4.16 10^3/uL (1.8-7.7); Neutrophils % 61.3 %; Nucleated Red Blood Cells % 0 %; Platelet Count 222 10^3/cmm (130-400); Red Blood Count 3.97 10^6/uL (4.1-5.3); Red Cell Distribution Width 12.9 % (12.1-15.1); White Blood Count 6.8 10^3/uL (4.0-10.0)
[2022-02-11 16:17] LABS: INR 1.01 (0.8-1.2)
[2022-02-11 16:18] LABS: Partial Thromboplastin Time 29.2 SECONDS (23.9-36.7)
[2022-02-11 16:27] LABS: Alanine Aminotransferase 28 U/L (0-33); Albumin Level 4.2 g/dL (3.5-5.2); Alkaline Phosphatase 64 U/L (35-105); Anion Gap 15.8 (5-19); Aspartate Amino Transferase 27 U/L (0-32); Blood Urea Nitrogen 17 mg/dL (6-20); Calcium 9.6 mg/dL (8.5-10.5); Carbon Dioxide 25 mmol/L (22-29); Chloride 98 mmol/L (98-107); Globulin 2.8 g/dL (1.3-4.6); Glomerular Filtration Rate 127.6 mL/min (90-130); Glucose 104 mg/dL (65-115); Lipase 15 U/L (13-60); Osmolality Calculated 282 mOsm/kg (285-295); Potassium 3.8 mmol/L (3.5-5.1); Sodium 135 mmol/L (136-145); Total Bilirubin 0.8 mg/dL (0.15-1.2)
--- NOTE | 2022-02-11 16:40 | CTR_ITS ---
PROCEDURE INFORMATION: Exam: CT Abdomen And Pelvis With Contrast Exam date and time: 02/11/2022 5:40 PM Age: 56 years old Clinical indication: Other: Rectal bleeding; Additional info: Ruq/rlq abd pain; Bright red lower gi bleed TECHNIQUE: Imaging protocol: Computed tomography of the abdomen and pelvis with contrast. Radiation optimization: All CT scans at this facility use at least one of these dose optimization techniques: automated exposure control; mA and/or kV adjustment per patient size (includes targeted exams where dose is matched to clinical indication); or iterative reconstruction. Contrast material: OMNIPAQUE 350; Contrast volume: 95 ml; Contrast route: INTRAVENOUS (IV); COMPARISON: CT abdomen pelvis w con* [id number] 10/28/2019 1:30 AM RADIATION DOSE METRICS: Total DLP (mGy-cm): 597.86 FINDINGS: Liver: Mild diffuse fatty infiltration of the liver. No focal nodule. Gallbladder and bile ducts: Normal. No calcified stones. No ductal dilation. Pancreas: Normal. No ductal dilation. Spleen: Calcified granuloma in the spleen. Adrenal glands: Normal. No mass. Kidneys and ureters: Tiny hypodensity in the right kidney is too small to characterize but is most likely a cyst. No follow-up imaging is recommended. Multiple tiny left renal calculi versus early contrast excretion. No ureteral calculus or hydronephrosis. Stomach and bowel: Diverticulosis of the descending and sigmoid colon. No evidence for diverticulitis. Mild wall thickening in the proximal and mid sigmoid colon without adjacent fat stranding. The stomach and small bowel are unremarkable. Appendix: The appendix is visualized and is normal. Intraperitoneal space: Unremarkable. No free air. No significant fluid collection. Vasculature: Unremarkable. No abdominal aortic aneurysm. Lymph nodes: Unremarkable. No enlarged lymph nodes. Urinary bladder: Unremarkable as visualized. Reproductive: Unremarkable as visualized. Bones/joints: Old posterior right rib fracture. No acute fracture identified. Degenerative changes at L5-S1 and lower thoracic spine. Soft tissues: Small fat containing umbilical hernia. CT/CT abdomen pelvis w con* [id number] IMPRESSION: 1. Diverticulosis of the distal colon without evidence for diverticulitis. 2. Mild wall thickening in the sigmoid colon may relate to muscular hypertrophy. Colitis is not excluded. COMMENTS: Consistent with the [employer]'s Incidental Findings Committee white paper (J Am Mukesh Radiol 2018): Any incidental renal lesion less than 1 cm or classified as too small to characterize, or any incidental cystic renal lesion characterized as simple-appearing, is likely benign. No follow-up imaging is recommended for these lesions per consensus recommendations based on imaging criteria.
[2022-02-11] MEDS: iohexol 350 mg/mL 500 mL Btl (per mL) IV (17:43)
[2022-02-11 17:52] VITALS: BP 140/83; PULSE 93; RESP 14; O2SAT 97
[2022-02-11 18:43] LABS: Hematocrit 31.8 % (37.0-47.0); Hemoglobin 10.6 g/dL (11.5-15.3)
[2022-02-11] MEDS: HYDROcodone-acetaminophen 5-325 mg Tablet 1 TAB PO (19:05)
[2022-02-11 19:12] VITALS: BP 131/93; PULSE 100; RESP 18; O2SAT 96
--- NOTE | 2022-02-12 10:00 | DCPLANNER ---
Addendum entered by Lucia London 02/16/22 13:23: hourly manager received the following message from general surgery regarding follow up appointment: I called patient letting her know that we can get her extended to the FA dept to discuss paperwork or else she could pay out of pocket which she did not. I told her once she gets approved to call the office and we could get her and appt On 02/16/22 @ 11:32 Lucia London Wrote To Lucia London (2) Did anyone speak with patient about this? On 02/15/22 @ 09:23 Brandy Blackman Wrote To Commercial Loan Specialist Front Off Patient will need to speak to FA prior to us scheduling an appointment and need to be made aware of 100 payment towards total bill Original Note: hourly manager had message to schedule a follow up appointment for patient with general surgery. hourly manager sent patients information to the front office staff at general surgery. Patients information will be printed and reviewed. Clinic will call patient with appointment information.
== END 2022-02-11 19:09 | disposition home or self-care (01) ==
PROVIDERS: Family Medicine; Emergency Provider Emergency Medicine
DX: K57.91 Diverticulosis of intestine, part unspecified, without perforation or abscess with bleeding (principal)
CPT/HCPCS: 36415; 74177; 80053; 83690; 85014; 85018; 85025; 85610; 85730; 86850; 86900; 96360; 96361; 99285; J7040; Q9967

== ENCOUNTER → 2022-10-20 09:00 | Outpatient (BNVA) | payer MEDICAID, SELFPAY | PROVIDERS: Visit Provider Nurse Practitioner | DX: R51.9 Headache, unspecified (principal); J30.89 Other allergic rhinitis | CPT/HCPCS: 87426 ==

== ENCOUNTER → 2023-07-12 16:19 | Outpatient (BNVA) | payer OTHER, MEDICAID, SELFPAY | PROVIDERS: Visit Provider Emergency Medicine | DX: S59.902A Unspecified injury of left elbow, initial encounter (principal); S69.92XA Unspecified injury of left wrist, hand and finger(s), initial encounter; X58.XXXA Exposure to other specified factors, initial encounter | CPT/HCPCS: 73080; 73110 ==

== ENCOUNTER 2023-10-04 08:30 | Day surgery (SDC) | payer OTHER, MEDICAID, SELFPAY ==
[2023-10-04 08:46] VITALS: BMI 25.4
[2023-10-04 08:51] VITALS: BP 140/90; PULSE 96; RESP 18; TEMP 36.1; O2SAT 96
[2023-10-04] MEDS: sodium chloride 0.9% 1,000 ML 30 ML IV (08:55)
--- NOTE | 2023-10-04 09:28 | W.PM.OPSUD ---
Surgery/Procedure H&P Update DATE OF PROCEDURE: October 04, 2023 DATE H&P PERFORMED: 09/14/23 H&P UPDATE INFORMATION: I have reviewed H&P completed within last 30 days, I have examined patient prior to procedure, No changes to prior documentation and H&P is in [facility] [place] on date indicated PLANNED PROCEDURE: Operation Date: 10/04/23 10:40 Proposed Procedures p EGD 55312, 22383, G0105, K57.90, Z87.19, K27.9(Not Applicable) - Viraj Escobedo MD s Colonoscopy(Not Applicable) - Viraj Escobedo MD
--- NOTE | 2023-10-04 10:03 | ANES.PREANE2 ---
Pre-Anesthetic Assessment Height/Weight: Height 1.68 m Weight 71.668 kg Temp Pulse Resp BP Pulse Ox O2 Del Method 97 F L 96 18 140/90 96 Room Air 10/04/23 08:51 10/04/23 08:51 10/04/23 08:51 10/04/23 08:51 10/04/23 08:51 10/04/23 08:51 Preop Diagnosis: GERD, bloody stools Operation Date: 10/04/23 10:40 Proposed Procedures p EGD 55043, 55877, G0105, K57.90, Z87.19, K27.9(Not Applicable) - Viraj Escobedo MD s Colonoscopy(Not Applicable) - Viraj Escobedo MD Was Beta Gustavo taken within 24 hours: N/A Was Clonidine taken within 24 hours: N/A Last intake: Intake Last Liquid Date 10/03/23 Last Liquid Time 23:30 Last Solid Date 10/02/23 Social Tobacco 1 pack(s) per day 20 pack years history of heavy drinking; socially drinks now Exam alert and oriented x 3 Airway Submandibular: within normal limits Cervical ROM: Other (stiffness) Mallampati: Class I Dentition: false History/ROS No significant history except as noted Pulmonary Chronic Obstructive Pulmonary Disease CV/HEM None reported denies CP None reported Hepatic None reported GI Gastroesophageal Reflux Disease Metabolic None reported Musc/skel Osteoarthritis/DJD Neuropsych Seizure (last a few months ago; does not take medications; slurs words and grand mal) Anesthetic Plan ASA status: 3 Anesthesia: MAC Risk of > 500 ml blood loss (7ml/kg in children): No Medications/Allergies Home Medications Medication Instructions Recorded Confirmed Last Taken Type vit T-qkakzihj-zoipcsxsqqe lotion 1 applic topical DAILY 08/27/20 10/03/23 09/30/23 History (Cetaphil Moisturizing lotion) cetirizine 10 mg tablet 10 mg PO DAILY #30 tabs 10/20/22 10/03/23 10/02/23 Rx fluticasone propionate 50 2 spray intranasal DAILY #16 grams 10/20/22 10/04/23 10/02/23 Rx mcg/actuation nasal spray,suspension (Flonase Allergy Relief) acetaminophen 325 mg tablet 650 mg PO QID PRN Pain 07/12/23 10/03/23 10/03/23 History (Tylenol) famotidine 20 mg tablet 20 mg PO BID acid reflux #60 tabs 08/10/23 10/03/23 10/03/23 Rx ibuprofen 800 mg tablet 800 mg PO Q8H PRN pain 30 days #60 09/08/23 10/03/23 10/02/23 Rx tabs Allergies Allergy/AdvReac Type Severity Reaction Status Date / Time No Known Allergies Allergy Verified 10/04/23 08:55 Current Medications Generic Name Dose Route Start Last Admin Trade Name Freq PRN Reason Stop Dose Admin Sodium Chloride 1,000 mls @ 30 mls/hr 10/04/23 08:45 10/04/23 08:55 Sodium Chloride 0.9% IV 10/05/23 08:44 30 mls/hr .Q24H KALIN Administration PFSH Anesthesia Medical History (Updated 09/27/23 @ 15:04 by Stanley Pepper MD) Left elbow tendonitis URI with cough and congestion History of bloody stools Seizures Injury of elbow, left Chronic GERD Allergic rhinitis Diverticulosis Psoriasis Surgical History No pertinent past surgical history Family History Father No problems noted. Mother Cancer Social History Smoking and tobacco/nicotine status: current every day tobacco/nicotine user Quit status (tobacco/nicotine): not considering quitting Alcohol intake: current Alcohol intake frequency: holidays/special occasions only Alcohol type: beer and other Substance/Drug Use: never Data Anesthesia Cardiac Studies: No Data to Display
[2023-10-04 11:16] VITALS: BP 113/69; PULSE 76; RESP 20; TEMP 36.2; O2SAT 99
[2023-10-04 11:20] VITALS: BP 123/77; PULSE 77; RESP 20; O2SAT 99
[2023-10-04 11:30] VITALS: BP 134/82; PULSE 70; RESP 20; O2SAT 99
--- NOTE | 2023-10-04 15:12 | ANE.PACU2 ---
Inpatient post-anesthesia follow up: Airway intact: Yes Vital signs: Temperature 97.2 F Pulse Rate 70 Respiratory Rate 20 Blood Pressure 134/82 Pulse Oximetry 99 Oxygen Delivery Me thod Room Air Oxygen Flow Rate Fraction of Inspir ed Oxygen Hydration adequate: Yes Nausea and vomiting: No Pain level: 2 Mental status: Baseline
== END 2023-10-04 11:53 | disposition home or self-care (01) ==
PROVIDERS: PCP Family Medicine Adult Medicine; Visit Provider Surgery
PROC: 0DJ08ZZ Inspection of Upper Intestinal Tract, Via Natural or Artificial Opening Endoscopic (ICD-10-PCS; CPT 43235; principal; 2023-10-04 10:40)
PROC: 0DJD8ZZ Inspection of Lower Intestinal Tract, Via Natural or Artificial Opening Endoscopic (ICD-10-PCS; CPT 45378; 2023-10-04 10:40)
DX: K57.32 Diverticulitis of large intestine without perforation or abscess without bleeding (principal); Z87.19 Personal history of other diseases of the digestive system; K27.9 Peptic ulcer, site unspecified, unspecified as acute or chronic, without hemorrhage or perforation; K29.80 Duodenitis without bleeding; K29.50 Unspecified chronic gastritis without bleeding; D12.5 Benign neoplasm of sigmoid colon; K52.9 Noninfective gastroenteritis and colitis, unspecified; F17.210 Nicotine dependence, cigarettes, uncomplicated; J44.9 Chronic obstructive pulmonary disease, unspecified; K21.9 Gastro-esophageal reflux disease without esophagitis
CPT/HCPCS: 43239; 45380; 45385; 88305; 88342; J2704; J7030

== ENCOUNTER → 2024-06-12 08:47 | Outpatient (BNVA) | payer OTHER, MEDICAID, SELFPAY | PROVIDERS: PCP Family Medicine; Visit Provider Family Medicine | DX: R56.9 Unspecified convulsions (principal) | CPT/HCPCS: 85025 ==

== ENCOUNTER 2024-09-07 19:40 | Emergency (ER) | payer OTHER, SELFPAY ==
[2024-09-07 19:44] VITALS: BP 156/92; PULSE 96; RESP 16; TEMP 36.9; O2SAT 92; BMI 22.8
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
[2024-09-07 21:00] LABS: Glucose Urine UA Negative (Normal); Nitrate Urine Negative (Negative); Specific Gravity, Urine 1.028 (1.005-1.030)
[2024-09-07 21:05] LABS: Add Urine Microscopic? YES
[2024-09-07 21:07] LABS: PCP Screen Urine Negative (Negative)
[2024-09-07 21:16] LABS: Hematocrit 42.0 % (36-47); Hemoglobin 13.80 g/dL (11.27-16.99); Mean Corpuscular HGB Conc 32.9 g/dL (30-55); Mean Corpuscular Hemoglobin 29.0 pg (27-33); Mean Corpuscular Volume 88.2 fl (85-98); Nucleated Red Blood Cells % 0 %; Platelet Count 188 10^3/cmm (157-399); Red Blood Count 4.76 10^6/uL (3.85-5.65); White Blood Count 6.74 10^3/uL (3.29-11.43)
[2024-09-07 21:37] LABS: Alanine Aminotransferase 47 U/L (0-33); Albumin Level 4.1 g/dL (3.5-5.2); Alkaline Phosphatase 72 U/L (35-105); Anion Gap 17.8 (5-19); Aspartate Amino Transferase 53 U/L (0-32); Blood Urea Nitrogen 14 mg/dL (6-20); Calcium 9.4 mg/dL (8.5-10.5); Carbon Dioxide 26 mmol/L (22-29); Chloride 104 mmol/L (98-107); Creatinine Clr Calc Pharmacy 101.1228; Globulin 3.7 g/dL (1.3-4.6); Glucose 93 mg/dL (65-115); Osmolality Calculated 298 mOsm/kg (285-295); Potassium 3.8 mmol/L (3.5-5.1); Sodium 144 mmol/L (136-145); Total Protein 7.8 g/dL (6.6-8.7)
[2024-09-07 21:38] LABS: Acetaminophen < 5.0 ug/mL (10-30); Salicylate < 0.3 mg/dL (3-10)
[2024-09-07 21:39] LABS: Alcohol Level 309 mg/dL (0-10)
[2024-09-07 22:26] VITALS: BP 138/84; PULSE 85; RESP 18; O2SAT 94
== END 2024-09-07 22:28 | disposition home or self-care (01) ==
PROVIDERS: Emergency Provider Emergency Medicine; PCP Family Medicine
DX: F10.129 Alcohol abuse with intoxication, unspecified (principal); Y90.8 Blood alcohol level of 240 mg/100 ml or more; F17.210 Nicotine dependence, cigarettes, uncomplicated
CPT/HCPCS: 36415; 80053; 80306; 80307; 81001; 85025; 99283; J9999

== ENCOUNTER 2024-10-27 21:10 | Emergency (ER) | payer OTHER, SELFPAY ==
[2024-10-27 21:04] VITALS: BP 141/95; PULSE 98; RESP 16; TEMP 36.9; O2SAT 91; BMI 24.1
--- NOTE | 2024-10-27 21:27 | XRR_ITS ---
PROCEDURE INFORMATION: Exam: XR Left Tibia and Fibula Exam date and time: 10/27/2024 9:28 PM Age: 59 years old Clinical indication: Injury or trauma; Fall; Blunt trauma; Lower leg; Left; Additional info: L leg inj TECHNIQUE: Imaging protocol: Radiologic exam of the left tibia and fibula. Views: 2 views. Total images: 4 COMPARISON: No relevant prior studies available. FINDINGS: Bones/joints: No acute osseous abnormality. No acute displaced fracture, subluxation or dislocation. Small plantar heel spur enthesophyte. Soft tissues: Soft tissues are normal as visualized, demonstrating no masses or induration. XR/XR tibia fibula LT 2V [id number] IMPRESSION: No acute displaced fracture.
--- NOTE | 2024-10-27 21:27 | XRR_ITS ---
PROCEDURE INFORMATION: Exam: XR Left Femur Exam date and time: 10/27/2024 9:28 PM Age: 59 years old Clinical indication: Injury or trauma; Fall; Blunt trauma; Thigh or upper leg; Left; Additional info: L thigh pain TECHNIQUE: Imaging protocol: Radiologic exam of the left femur. Views: 2 views. Total images: 4 COMPARISON: 1. CT abdomen pelvis w con* [id number] 02/11/2022 5:[address] abdomen pelvis w con* [id number] 10/28/2019 1:30 AM FINDINGS: Bones/joints: No acute osseous abnormality. Left femoral head-neck junction cam type convex contour which be associated with femoroacetabular impingement (MAINOR) in the appropriate clinical setting. No acute displaced fracture, subluxation or dislocation. Soft tissues: Soft tissues are normal as visualized, demonstrating no masses or induration. XR/XR femur LT min 2V* [id number] IMPRESSION: No acute displaced fracture. COMMENTS: If troublesome symptoms persist or progress, short term follow-up imaging or cross-sectional imaging would be recommended.
[2024-10-27] MEDS: HYDROmorphone 0.5 MG/0.5 ML INJ 1 MG IVP (21:42)
[2024-10-27] MEDS: ondansetron 2 mg/ML SDV 2 mL 4 MG IVP (21:42)
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
== END 2024-10-27 22:57 | disposition home or self-care (01) ==
PROVIDERS: Emergency Provider Emergency Medicine; PCP Family Medicine
DX: M79.605 Pain in left leg (principal); F17.210 Nicotine dependence, cigarettes, uncomplicated
CPT/HCPCS: 73552; 73590; 96374; 96375; 99284; J1171; J2405

== ENCOUNTER → 2024-11-14 14:31 | Outpatient (BNVA) | payer OTHER, SELFPAY | PROVIDERS: PCP Family Medicine; Visit Provider Specialist | DX: M25.562 Pain in left knee (principal); S83.002A Unspecified subluxation of left patella, initial encounter; S80.02XA Contusion of left knee, initial encounter; W19.XXXA Unspecified fall, initial encounter | CPT/HCPCS: 73560; 73565 ==